=== PATIENT | male | born 1960 ===

== ENCOUNTER 2020-01-22 06:35 | Day surgery (SDC) | payer OTHER ==
[~2020-01-22 06:35] MED LIST: CRESTOR PO
[2020-01-22] MEDS ORDERED: PERCOCET 5-3251 EACH PO (12:04)
[2020-01-22] MEDS ORDERED: NEURONTIN600 M1 PO (12:04)
[2020-01-22] MEDS ORDERED: POLY119PG PO (12:05)
== END 2020-01-22 16:48 | disposition home or self-care (01) ==
LOC: CIR.AMB 06:35 → ADM 09:30 → CIR.AMB 09:30
PROVIDERS: ATTEND Surgery
DX: K42.9 Umbilical hernia without obstruction or gangrene (principal); K40.20 Bilateral inguinal hernia, without obstruction or gangrene, not specified as recurrent